=== PATIENT | female | born 1995 | race Caucasian/White ===

== ENCOUNTER → 2021-09-09 | Outpatient (CLI) | payer BC | LOC: LAB 11:51 | DX: N91.2 Amenorrhea, unspecified (principal) | CPT/HCPCS: 36415; 84702 ==

== ENCOUNTER → 2021-09-19 | Outpatient (CLI) | payer BC | LOC: LAB 13:09 | DX: O03.9 Complete or unspecified spontaneous abortion without complication (principal) | CPT/HCPCS: 36415; 84702; 86900; 86901 ==

== ENCOUNTER → 2022-05-01 | Outpatient (CLI) | payer BC | LOC: LAB 11:11 | DX: Z32.00 Encounter for pregnancy test, result unknown (principal) | CPT/HCPCS: 36415; 84702 ==

== ENCOUNTER → 2022-05-10 | Outpatient (CLI) | payer BC | LOC: LAB 12:37 | DX: O03.9 Complete or unspecified spontaneous abortion without complication (principal) | CPT/HCPCS: 36415; 84702 ==